=== PATIENT | female | born 1970 | race Hispanic/Latino ===

== ENCOUNTER 2022-07-09 06:04 | Day surgery (SDC) | payer OTHER, SELFPAY ==
[2022-07-06 15:54] LABS: BASOPHILS % (AUTO) 0.5 % (0.0-5.0); EOSINOPHILS % (AUTO) 1.3 % (0.0-8.0); HEMATOCRIT 41.2 % (36-48); LYMPHOCYTES % (AUTO) 34.6 % (21.0-51.0); MEAN CORPUSCULAR HEMOGLOBIN 30.5 pg (27.0-33.0); MEAN CORPUSCULAR HGB CONC 32.8 g/dL (32.0-36.0); NEUTROPHILS % (AUTO) 56.3 % (40.0-77.0); PLATELET COUNT (AUTO) 264 K/uL (130-400); RED BLOOD CELL COUNT(AUTO) 4.43 MIL/uL (4.00-5.50); RED CELL DISTRIBUTION WIDTH 12.4 % (11.0-15.5); WHITE BLOOD COUNT (AUTO) 10.4 K/uL (4.8-10.8)
[2022-07-06 16:15] LABS: CREATININE 0.5 mg/dL (0.5-1.5); POTASSIUM 3.8 mmol/L (3.5-5.1)
[2022-07-08 09:39] VITALS: BP 140/75
[~2022-07-09] VITALS: Ht 154.9 cm; Wt 96.6 kg
[2022-07-09] VITALS (10 sets, daily range): BP systolic 98–140; BP diastolic 49–93
[~2022-07-09 06:04] MED LIST: BUPIVACAINE/PF 0.5% 10ML VIAL ONE; LIDOCAINE HCL 1% 20 ML VIAL ONE
[2022-07-09] MEDS ORDERED: CEFAZOLIN SODIUM 1 GM VIAL ONE (06:36)
[2022-07-09] MEDS ORDERED: LACTATED RINGERS 1000ML 1,000 ML IV ONE (06:37)
[2022-07-09] MEDS ORDERED: LIDOCAINE HCL 1% 20 ML VIAL INJ SCH (07:00)
[2022-07-09] MEDS ORDERED: MIDAZOLAM HCL 1 MG/ML 2ML VIAL ONE ×2 (07:51→08:34)
[2022-07-09] MEDS ORDERED: LIDOCAINE PF 100MG/5ML (2%) SYRINGE 5ML ONE (07:52)
[2022-07-09] MEDS ORDERED: SUCCINYLCHOLINE 200MG/10ML SYR ONE (07:52)
[2022-07-09] MEDS ORDERED: FENTANYL CITRATE PF 50 MCG/1 ML 2ML VIAL ONE ×2 (07:53→09:01)
[2022-07-09] MEDS ORDERED: PROPOFOL 10 MG/ML 20ML VIAL IV ONE ×2 (07:53)
[2022-07-09] MEDS ORDERED: ROCURONIUM 10MG/1ML SYR 10 MG/ML ML ONE (07:53)
[2022-07-09] MEDS ORDERED: CEFAZOLIN SODIUM 2 GM VIAL IVP ONE (08:00)
[2022-07-09] MEDS ORDERED: MEPERIDINE-PF 25 MG/ML SYG ONE (09:01)
[2022-07-09] MEDS ORDERED: ONDANSETRON 4MG INJ ONE (09:05)
[2022-07-09] MEDS ORDERED: KETOROLAC 30MG VIAL (30MG/ML) ONE (09:42)
== END 2022-07-09 10:30 | disposition home or self-care (01) ==
LOC: DAH 06:04
PROVIDERS: ATTEND Student in an Organized Health Care Education/Training Program
DX: D17.1 Benign lipomatous neoplasm of skin and subcutaneous tissue of trunk (principal); Z20.822 Contact with and (suspected) exposure to COVID-19; Z79.01 Long term (current) use of anticoagulants; Z79.899 Other long term (current) drug therapy
CPT/HCPCS: 80048; 84703; 85025; 87426; 36415; 21933; 88304; 88342; 88360; A6260; A4663; J7120; J3010 ×2; J0690 ×2; J3490; J2001; J2250 ×2; J2704 ×2; J2405; J1885; J2175; G0168; A4215; A4223; A4222; A4221; A4600; J0330